=== PATIENT | female | born 1945 | race Caucasian/White ===

== ENCOUNTER 2025-03-14 22:23 | Inpatient (IN) | payer MEDICARE, OTHER, SELFPAY ==
[2025-03-14 17:18] VITALS: BP 161/101
[2025-03-14 17:40] LABS: Hematocrit 40.0 % (37.0-47.0); Hemoglobin 13.3 g/dL (12.0-16.0); Mean Corp Hgb Conc. 33.3 g/dL (33.0-37.0); Mean Corpuscular Volume 92.8 fL (81.0-99.0); Nucleated Red Blood Cells % 0 %; Platelet Count 343 10^3/uL (130-400); Red Cell Dist. Width 12.3 % (11.5-14.5)
[2025-03-14 17:48] LABS: Urine Character Clear (Clear)
[2025-03-14 17:54] LABS: ALT (SGPT) 13 U/L (0-35); AST (SGOT) 20 U/L (14-36); Albumin 4.5 g/dl (3.5-5.0); Alkaline Phosphatase 83 U/L (38-126); Blood Urea Nitrogen 23 mg/dl (7-17); Calcium 10.2 mg/dl (8.4-10.2); Carbon Dioxide 23 mmol/L (22-30); Chloride 105 mmol/L (98-107); Glucose 119 mg/dl (70-99); Lipase 124 U/L (23-300); Potassium 4.2 mmol/L (3.5-5.1); Sodium 138 mmol/L (135-145); Total Protein 7.6 g/dl (6.3-8.2); eGFR 32.40
[2025-03-14 17:58] LABS: Urine Red Blood Cell 60-70 /HPF (0-2)
[2025-03-14 19:18] VITALS: BP 183/86; BMI 27.6
[2025-03-14 20:00] VITALS: BP 183/104
--- NOTE | 2025-03-14 20:03 | ED.GENMED ---
History of Present Illness
General
Chief Complaint: Flank Pain
Source: patient and spouse
Exam Limitations: none
Time Seen by Provider: 03/14/25 19:40
Nursing documentation reviewed up to this point in time: agreed with
History of Present Illness
History of Present Illness:
79-year-old female with history as noted presents to the emergency department for evaluation of abdominal pain. Patient reports onset of symptoms about 3 days ago and have been constant and progressive since then. She reports pain across the lower
abdomen and into the flanks bilaterally. No clear triggering or relieving factors noted. She reports some associated nausea but no significant vomiting. No diarrhea or constipation. Has not noted any dysuria or hematuria or change in urinary
frequency. She has not noted a fever or chills. She says she had kidney stones 20 years ago but thinks symptoms today are dissimilar.
Review of Systems
Review of Systems
All Other Systems: ROS reviewed and negative except as documented in HPI and ROS
Constitutional: Denies fever
Respiratory: Denies trouble breathing
Cardiac: Denies chest pain
ABD/GI: Reports abdominal pain and nausea; Denies vomiting, diarrhea or constipated
: Reports flank pain; Denies dysuria or frequency
Musculoskeletal: Denies neck pain
Neurological: Denies dizzy or headache
Phy Exam
Physical Exam
Physical Exam:
General: Awake, alert, oriented x3; no acute distress
Head: Normocephalic, atraumatic
Eyes: Conjunctiva normal, sclera anicteric
Throat: Airway intact, handling secretions
Neck: Trachea midline
Lungs: Clear to auscultation bilaterally, no wheezing, rales, rhonchi
Heart: Regular rate and rhythm, no murmurs, gallops, or rubs
Abd: Soft, non distended, mildly tender diffusely somewhat worse right upper quadrant
Back: No CVA tenderness
Neuro: Grossly intact
Skin: No rash in area of concern
Extremities: Warm and well-perfused
Scores
Heart Failure Risk
Heart Failure Risk Score: Not Applicable
Heart Score for Chest Pain Patients
STEMI patient?: Not applicable
Withdrawal Assessment of Alcohol
Withdrawal Assessment Completed?: Not applicable
Course
Orders/Labs/Results
Orders:
Orders
03/14/25 17:28
Complete Blood Count/With Diff Urgent
Comprehensive Metabolic Panel Urgent
Lipase Urgent
Urinalysis Reflex To Culture Urgent
Date Specimen was Collected: 03/14/25
Time Specimen was Collected: 17:22
Urine Microscopic Reflex Cult Urgent
Urine Culture Urgent
MANISHA Source: U
Specimen Description:
Date Specimen was Collected: 03/14/25
Time Specimen was Collected: 17:22
03/14/25 19:42
CT Abd/pelvis W/wo Iv Cont Urgent
Comment: ok to change per Dr Moran
Reason For Exam: flank pain, h/o nephrolithiasis
03/14/25 20:02
Morphine Sulfate 4 mg IV NOW STA
03/14/25 20:03
0.9% Sodium Chloride 1000 ml [Nss] 1,000 ml IV BOLUS
03/14/25 21:37
CefTRIAXone [Rocephin] 1,000 mg IV NOW STA
HYDROmorphone [Dilaudid] 0.5 mg IV NOW STA
03/14/25 21:40
UROLOGY CONSULT Urgent
Consulting Provider: Rodo Gramajo
Was physician already notified: Yes
Abnormal Lab Results
03/14/25
17:28
Absolute Neuts (auto) 7.8 H 10^3/uL
(1.4-6.5)
Lymphocytes % 19.1 L %
(20.5-51.1)
BUN 23 H mg/dl
(7-17)
Creatinine 1.6 H mg/dL
(0.6-1.0)
Glucose 119 H mg/dl
(70-99)
Ur Occult Blood Reflex 4+ A
(Negative)
Urine RBC 60-70 A /HPF
(0-2)
Urine Bacteria (Reflex) Many A
(Negative)
Urine Albumin (Reflex) 2+ A
(Neg - Trace)
03/14/25 17:28
03/14/25 17:28
Vital Signs
Initial and Last Documented VS:
Initial Vital Signs
Temp Pulse Resp BP Pulse Ox
36.8 C 99 20 161/101 97
03/14/25 17:18 03/14/25 17:18 03/14/25 17:18 03/14/25 17:18 03/14/25 17:18
Last Documented Vital Signs
Temp Pulse Resp BP Pulse Ox
36.8 C 82 18 183/104 95
03/14/25 17:18 03/14/25 19:18 03/14/25 19:18 03/14/25 20:00 03/14/25 20:06
MDM/Problems Addressed
Differential Diagnosis Includes:
Nephrolithiasis, diverticulitis, UTI, colitis/enteritis
MDM/Problems Addressed:
79-year-old female presents for evaluation of lower abdominal pain rating to the flanks progressive over the past few days. Hypertensive but otherwise normal vitals. Physical exam as noted. Labs were sent off in triage including a CBC and a
CMP�CMP was significant for JOSE with creatinine of 1.6. Urinalysis is positive for blood but not clearly infected. She does have a long history of nephrolithiasis concern for symptomatic nephrolithiasis based on urinalysis and history although
bilateral nature goes somewhat against this diagnosis. Will plan to check CT abdomen pelvis. Will treat symptomatically. Provide IV fluids. Reassess after the above.
CT reviewed by me appears to show obstructive stone in the right ureter with severe hydronephrosis and likely forniceal rupture. Awaiting final report. Will provide antibiotic prophylaxis. Continue fluid resuscitation. Patient still having pain
requesting additional pain medication which we will provide. Discussed with urology for consultation. Will plan to admit for continued management. Case discussed with hospitalist.
*Radiology
Radiology exam reviewed: radiology read reviewed
*Pulse Oximetry
SaO2: 95
Oxygen Mode of Delivery: Room air
Patient hypoxic: no (95%)
*Critical Care Note
Total Time (30-74mins, 75-104mins- exclusive of procedures): Not Applicable
Data Reviewed
Review of Other/Old Records Reveals: Labs and Records
Source: patient, records and spouse
Patient Management
Discussion with other providers: Hospitalist (Discussed with hospitalist) and Auditor Internal (Discussed with urologist)
Escalation/DeEscalation of care consider admission/obs:
Admission indicated
ED Attending Note
-
Portions of this chart may have been created with voice recognition software.� Occasional wrong word or��sound alike� substitutions may have occurred due to the inherent limitations of voice recognition software.
Discharge Plan
Departure
Discharge Problem:
Nephrolithiasis, Hydronephrosis with obstructing calculus, JOSE (acute kidney injury)
Referrals:
Alicia Alvarez DO [Family Provider, Internal Medicine]
Interventions
Interventions:
*Risk Screen - Suicide Last Done: 03/14/25 19:14
*General Assessment Last Done: 03/14/25 17:18
*Neglect/Abuse Screening Last Done: 03/14/25 19:14
*ED- Fall Risk Assessment Last Done: 03/14/25 19:14
*ED COVID-19 Vaccine History Last Done: 03/14/25 19:14
*ED Influenza Vaccine History Last Done: 03/14/25 19:14
WL-Whqddt-Fklidqvrhu Assessment Last Done: 03/14/25 19:14
ED-Female Genitourinary Assessment Last Done: 03/14/25 19:14
Discharge Date and Time
Print Language: SALVADOREAN
[2025-03-14] MEDS: MORPHINE SULFATE 4 MG IV (20:08)
[2025-03-14] MEDS: NSS 1000 IV (20:14)
[2025-03-14 21:42] VITALS: BP 135/56
[2025-03-14] MEDS: ROCEPHIN 1000 MG IV (21:42)
[2025-03-14] MEDS: DILAUDID 0.5 MG IV (21:42)
--- NOTE | 2025-03-14 21:51 | W.PN.UPDATE ---
Update Note
Progress Note Update
This is an addendum to H&P written by MATEO Antoine
I saw and examined the patient.
The GEAR TOOTH GRINDING MACHINE OPERATOR's note was reviewed and I agree with the note.
Comment:
Ms. Venecia Anand is a 79 yo woman with hx essential HTN, HLD who presents to the ER with progressive flank and lower abdominal pain over the past 3 days.
Triage VS: 36.8 C, P 99, RR 20, BP 161/101, SpO2 97%
On exam patient is AAO x 3, conversant, in no distress. CV: S1, S2, RRR, abdomen soft, no LE swelling. Pain largely resolved post Dilaudid.
LABS: WBC 10.6, Hg 13.3, PLT 343, Na 138, K+ 4.2, CO2 23, BUN 23, Cr 1.6, Glucose 119, CA 10.2, liver enzymes WNL, Lipase 124
UA with 60-70 RBC, 6-[address] A/P
IMPRESSION:
8 mm mid right ureteral calculus with associated severe right hydroureteronephrosis. There is a large amount of right perinephric edema anteriorly likely reflecting components of renal calyceal/forniceal rupture; however, no micheline contrast
extravasation is present on the delayed images. No ureteral rupture.
Obstructive Nephrolithiasis with 8mm mid right ureteral calculus and severe right hydroureteronephrosis
JOSE
-case discussed between ER and Urology, Dr. Gramajo
-admit to med/surg
-IVF
-IV Ceftriaxone
-NPO after MN for OR
-pain control
-hold B[employer]NER Lisinopril
Remainder of plan per PA note
[2025-03-14 22:01] VITALS: BP 137/78
--- NOTE | 2025-03-14 22:16 | HPS.HSE ---
Family Physician
-
Family Physician: Alicia Alvarez
Chief Complaint
-
Abdominal Pain
History of Present Illness
Patient is an 79 y/0 female past medical history of hypertension, hyperlipidemia and remote kidney stone who presents with abdominal pain. Patient reports symptoms started about 3 days ago and have continued to worsen prompting her to come to the
emergency department for evaluation. She reports associated nausea without vomiting. She denies diarrhea or constipation. She denies dysuria or hematuria. She denies fevers, sweats or chills.
Medical History
Past Medical History
Past Medical History: Reports Other
Additional Past Medical History:
Essential Hypertension
Hyperlipidemia
Past Surgical History: Reports Other
Additional Past Surgical History:
Right Hip Replacement
Bilateral Lower Extremity Vein Stripping
Breast Biopsy
Cataracts
Social History
Tobacco: Non-smoker
Alcohol: None
Personal:
Living: With Family
Family History
Family History: Not pertinent
Allergies / Home Medications
Allergies reflects when Allergies were last updated in [facility].
Home Medications with original date entered in [facility]
Allergy/Medication List:
Allergies
Allergy/AdvReac Type Severity Reaction Status Date / Time
No Known Allergies Allergy Unverified 03/14/25 17:18
Home Medications
cholecalciferol (vitamin D3) 25 mcg (1,000 unit) tablet (Vitamin D3) 25 mcg PO DAILY 03/14/25
lisinopril 20 mg tablet 20 mg PO DAILY 03/14/25
nifedipine 60 mg tablet,extended release 60 mg PO DAILY 03/14/25
simvastatin 40 mg tablet 40 mg PO QPM 03/14/25
Review of Systems
-
History Source: Patient
A 12 point ROS was completed and negative except as noted: Yes
Constitutional: Denies Fever
Respiratory: Denies Cough or Trouble Breathing
Cardiac: Denies Chest Pain or Palpitations
Abdomen/GI: Reports Abdominal Pain; Denies Nausea, Vomiting, Diarrhea or Constipated
Physical Exam
Vital Signs
Vital Signs
Temp Pulse Resp BP Pulse Ox
98.2 F 82 18 137/78 93
03/14/25 17:18 03/14/25 19:18 03/14/25 19:18 03/14/25 22:01 03/14/25 22:01
Physical Exam
General: Comfortable and Conversant
HEENT: Anicteric and Moist mucous membranes
Respiratory: Clear and Non Labored Respirations
Cardiac: S1/S2 and Regular Rhythm
GI: Soft and Tender (Mild tenderness in suprapubic region)
Genito-urinary: Other (Right CVA tenderenss)
Musculoskeletal: No Clubbing and No Cyanosis
Skin: Warm and Dry
Neuro: Awake, Alert and Oriented
Psych: Calm
Laboratory Results
-
03/14/25 17:28
03/14/25 17:28
Laboratory Results
Total Bilirubin 0.7 mg/dl (0.2-1.3) 03/14/25 17:28
AST 20 U/L (14-36) 03/14/25 17:28
ALT 13 U/L (0-35) 03/14/25 17:28
Alkaline Phosphatase 83 U/L (38-126) 03/14/25 17:28
Lipase 124 U/L (23-300) 03/14/25 17:28
Abd/Pelvis CT:
8 mm mid right ureteral calculus with associated severe right hydroureteronephrosis. There is a large amount of right perinephric edema anteriorly likely reflecting components of renal calyceal/forniceal rupture; however, no micheline contrast
extravasation is present on the delayed images. No ureteral rupture.
Data Reviewed
-
CT Scan: Report Reviewed by me
Lab Data: Labs Reviewed by me
Impression/Plan
-
Acute Kidney Injury, secondary to obstructing kidney stone
-Hold Lisinopril
-Continue IVFs
-Recheck creatinine in AM
Obstructing Right Ureteral Stone
-Consult Urology
-Continue NPO for likely OR tomorrow
-Continue ceftriaxone
-Continue IVFs
Essential Hypertension
-Lisinopril on hold as above
-Continue nifedipine
Hyperlipidemia
-Continue simvastatin
DVT proph: SCDs
Code Status: Full Code
[2025-03-14 23:00] VITALS: BP 120/60
[2025-03-15] VITALS (9 sets, daily range): BP systolic 114–155; BP diastolic 48–81; BMI 27.5
[2025-03-15] MEDS: NSS 1000 IV ×2 (00:26→11:40)
--- NOTE | 2025-03-15 00:30 | PTCARENOTE ---
Pt transported from ED to 3W via stretcher. Pt independent from stretcher to bed, vitals obtained and stable. Pt started on NSS @ 100/hr, oriented to room and call patel within reach. POC ongoing.
[2025-03-15 06:07] LABS: Hematocrit 34.2 % (37.0-47.0); Hemoglobin 11.8 g/dL (12.0-16.0); Mean Corp Hgb Conc. 34.5 g/dL (33.0-37.0); Mean Corpuscular Volume 90.0 fL (81.0-99.0); Platelet Count 289 10^3/uL (130-400); Red Cell Dist. Width 12.3 % (11.5-14.5)
--- NOTE | 2025-03-15 06:22 | CONS.URO ---
Consultation
-
Date/Time Consultation Requested: 03/15
Date/Time Consultation Performed: 03/15
Requesting Provider: ED
Performing Provider: Rox
Reason for Consultation: intractable right renal colic, obstructing right ureteral stone, JOSE
Medical History
History of Present Illness
79F presents to [facility] ED w/ abdominal pain x3 days - noted for progression in severity in last few days.
Denies fevers/chills.
Denies hematuria or dysuria.
H/o ESWL ~20 yrs ago @[facility].
Past Medical History
Past Medical History: HTN and Other (kidney stones, HLD)
Past Surgical History: Orthopedic (right MICHELLE, bilateral LE vein stripping, breast biopsy, cataract) and Urological (ESWL (~20 yrs ago @[facility]))
Social History
Tobacco: Non-smoker
Alcohol: None
Drug: None
Personal:
Living: With Family
Employment: Retired
Family History
Family History: Reviewed & Not Pertinent
Allergies/Home Medications
Allergies
Allergy/AdvReac Type Severity Reaction Status Date / Time
No Known Allergies Allergy Unverified 03/14/25 17:18
Home Medications
�Medication �Instructions �Recorded �Confirmed �Type
cholecalciferol (vitamin D3) 25 25 mcg PO DAILY 03/14/25 03/14/25 History
mcg (1,000 unit) tablet (Vitamin
D3)
lisinopril 20 mg tablet 20 mg PO DAILY 03/14/25 03/14/25 History
nifedipine 60 mg tablet,extended 60 mg PO DAILY 03/14/25 03/14/25 History
release
simvastatin 40 mg tablet 40 mg PO QPM 03/14/25 03/14/25 History
Review of Systems
-
History Source: Patient
A 12 point Review of Systems was completed except as noted: Yes
Constitutional: Reports No Symptoms
EENT: Reports No Symptoms
Respiratory: Reports No Symptoms
Cardiac: Reports No Symptoms
Abdomen/GI: Reports Abdominal Pain
: Reports No Symptoms
Musculoskeletal: Reports No Symptoms
Skin: Reports No Symptoms
Neurological: Reports No Symptoms
Endocrine: Reports No Symptoms
Hematologic/Lymphatic: Reports No Symptoms
Psych: Reports No Symptoms
Physical Exam
Vital Signs
Vital Signs
Temp Pulse Resp BP Pulse Ox
97.8 F 92 16 155/81 93
03/15/25 00:09 03/15/25 00:09 03/15/25 00:09 03/15/25 00:09 03/15/25 00:09
Lab / Testing Results
Laboratory Results
03/15/25 05:10
Physical Exam
General: Well Developed, Well Nourished and Comfortable
HEENT: Normocephalic and Anicteric
Respiratory: Non Labored Respirations
Cardiac: S1/S2
Breast: Deferred by me
GI: Soft, Non Tender and Non Distended
Rectal: Deferred by Provider
Genito-urinary: No Costovertebral Tend and Clear Urine
Musculoskeletal: No Edema
Skin: Warm and Dry
Neuro: AO x 3 and No Motor Deficits
Hematologic/Lymphatic: No Lymphadenopathy
Psych: Calm and Intact Judgement
Assessment / Plan
-
High grade obstructive uropathy of right kidney - likely forniceal/calyceal rupture
Obstructing right ureteral stone
JOSE
Afebrile, VSS.
WBC WNL
Cr 1.6 (baseline 0.9)
Detailed discussion including SDM had w/ patient regarding CT and lab findings indicating obstructive uropathy.
Reviewed risks, benefits, alternatives, and potential complications of cysto + right ureteral stent insertion (and possible right ureteroscopy/laser lithotripsy/stone extraction).
Potential risks and complications include but not limited to urosepsis, bleeding, ureteral/bladder injury, risk of ureteral stricture formation, need for additional procedures/surgeries.
- Maintain NPO
- To OR as add-on case for cysto + right RGP/stent insertion (vs. right ULS if clinically feasible)
- Patient understands that if stent placement ONLY performed - will have 2nd stage outpatient procedure to address stone
- IV Ancef 2g project controls scheduler to OR (ordered)
- Surgical consent @OR desk (signed)
D/w patient.
Data Reviewed
-
Total Time Spent with Patient (in minutes): 45
CT Scan: Image personally visualized and interpreted, Report Reviewed by Me, Discussed with Physician and Discussed with Patient
Lab Data: Labs Reviewed, Discussed with Physician, Discussed with Patient and Discussed with Family
Old Records: Reviewed
[2025-03-15 06:24] LABS: Blood Urea Nitrogen 16 mg/dl (7-17); Calcium 8.7 mg/dl (8.4-10.2); Carbon Dioxide 25 mmol/L (22-30); Chloride 109 mmol/L (98-107); Estimated Creatinine Clearance 34 ml/min; Glucose 104 mg/dl (70-99); Potassium 4.2 mmol/L (3.5-5.1); Sodium 138 mmol/L (135-145); eGFR 45.76
[2025-03-15] MEDS: PROCARDIA XL (EXTENDED RELEASE) 60 MG PO (08:17)
--- NOTE | 2025-03-15 08:56 | W.SUR.PREOP ---
Pre-Operative Surgical Note
-
I have examined this patient prior to the performance of the scheduled procedure.
The patient's condition is unchanged from the time of the current History and
Physical and the patient is able to undergo the scheduled procedure.
To OR for cysto + right stent insertion
IV Ancef 2g ordered
Surgical consent signed @OR test desk trouble locator
D/w patient this AM.
--- NOTE | 2025-03-15 13:10 | W.PN.HOSP.TC ---
Today's Communication/Plan
-
Assessment / Plan
Assessment / Plan
NAD
Scleral Anicteric
MMM
No JVD
CTABL
RRR, S1/S2
Soft, NT, ND, BS+
Warm, Dry
AAOx3
Calm
Acute kidney injury secondary to obstructing kidney stone
Hold lisinopril
Continue IV fluids
Follow renal function
Avoid nephrotoxins
Avoid hypotension
Obstructing right urethral stone
Urology following
Continue n.p.o.
4 OR with stent/stone intervention
IV fluids
IV antibiotics
Hypertension
Hold ELI inhibitor due to JOSE
Continue CCB
Hyperlipidemia
Continue statin
DVT prophylaxis
SCDs
Anticipated Discharge: Within 24 hours
Subjective/Interval History
-
Date of Service: March 15, 2025
Seen and examined. No new complaints. No acute overnight events.
No pain no nausea no vomiting
Urinating well
Daughter at bedside
Objective Data
-
Labs:
Laboratory Results
03/15/25
05:10
WBC 10.0
Hgb 11.8 L
Hct 34.2 L
Plt Count 289
Sodium 138
Potassium 4.2
Chloride 109 H
Carbon Dioxide 25
BUN 16
Creatinine 1.2 H
Glucose 104 H
Calcium 8.7 D
Vital Signs:
Vital Signs
Temp Pulse Resp BP Pulse Ox
98.3 F 83 16 137/71 94
03/15/25 07:55 03/15/25 08:17 03/15/25 07:55 03/15/25 08:17 03/15/25 09:41
I&O
10/03/15/25 03/16/25
06:59 06:59 06:59
Intake Total 0 / 0
Balance 0 / 0
--- NOTE | 2025-03-15 14:59 | W.IMMPOSTOP ---
Surgical Immed Post Op Note
-
Primary Surgeon:
marissa
Assisting Surgeon:
Pre-op Diagnosis:
obstructing right ureteral stone with fornyx rupture
Post-op Diagnosis:
same
Procedure Performed:
cysto- right retrograde, stone manipulation, stent and chery placement
Anesthesia Type:
gen
Specimen / Cultures:
none
Estimated Blood Loss:
2cc
Complications:
none
Operative Findings:
stent and chery placed
observe
[2025-03-15] MEDS: STERILE WATER FOR INJECTION 10 ML IV (16:13)
[2025-03-15] MEDS: ROCEPHIN 1000 MG IV (16:13)
[2025-03-15] MEDS: LIPITOR 20 MG PO (17:19)
[2025-03-16] MEDS: NSS 1000 IV (01:52)
[2025-03-16 07:22] VITALS: BP 149/71
[2025-03-16] MEDS: PROCARDIA XL (EXTENDED RELEASE) 60 MG PO (07:58)
[2025-03-16] MEDS: TYLENOL 650 MG PO (08:13)
--- NOTE | 2025-03-16 10:19 | W.PN.URO.CBU ---
Today's Communication / Plan
-
discharge when medically stable
Assessment / Plan
-
s/p stent for obstructing right ureteral stone
remove chery
is stable medically- ok for discharge form my standpoint with outpt f/u with me
would cover for 5 days with antibx emprically
Diagnosis
-
Date of Service: March 16, 2025
-
Patient Diagnosis:
right ureteral stone
fornyx rupture
Post Op Day:
right ureteral stent 03/15
Subjective
-
pt feels fine
urine clear
no fevers
ucx no obvious growth
Objective
-
Vital Signs
Temp Pulse Resp BP Pulse Ox
97.8 F 89 16 149/71 95
03/16/25 07:22 03/16/25 07:58 03/16/25 07:22 03/16/25 07:58 03/16/25 07:22
Intake and Output
03/15/25 03/16/25 03/17/25
06:59 06:59 06:59
Intake Total 0 / 0 1580 / 1580
Output Total 1750 / 1750
Balance 0 / 0 -170 / -170
Intake:
Oral fluids 0 / 0 480 / 480
IV fluids (Total) 1100 / 1100
Normosol 100 / 100
Output:
Urine, Chery 1750 / 1750
Other:
Number of approximated MODERATE 2 3
amounts of urine
Laboratory Results
03/15/25 05:10
03/15/25 05:10
Review of Systems
-
Constitutional: No Symptoms
Respiratory: No Symptoms
Cardiac: No Symptoms
Abdomen/GI: No Symptoms
Physical Exam
-
General - no acute distress
Abdomen - soft, non-tender
[2025-03-16] MEDS: NSS IV (12:22)
--- NOTE | 2025-03-16 13:25 | W.DCSUMMARY ---
Discharge Summary
Discharge Data
Date of Admission: 03/14/25
Date of Discharge: 03/16/25
-
Pending Results: No
Hospital Course
79 y/0 female past medical history of hypertension, hyperlipidemia
Presented with pain. CT abdomen pelvis demonstrated 8 mm right ureteral calculus with associated severe right sided hydroureteronephrosis. Found to have acute kidney injury secondary to stone which peaked at 1.6. Initiated on IV fluids lisinopril
held. Sung catheter placed with good output. Was evaluated by urology recommended to continue IV fluids analgesics antiemetics n.p.o. follow OR on 03/15. S/p cystoscopy with right retrograde and stone manipulation and stent placement tolerated
procedure well. Sung catheter was removed on 03/16. Was able to urinate on her own with improving renal function to 1.2
CTAP
IMPRESSION:
8 mm mid right ureteral calculus with associated severe right hydroureteronephrosis. There is a large amount of right perinephric edema anteriorly likely reflecting components of renal calyceal/forniceal rupture; however, no micheline contrast
extravasation is present on the delayed images. No ureteral rupture.
Seen and examined on day of discharge. No new complaints. No acute overnight events.
Sung removed. Was able to urinate. PVRs checked 0.
NAD
Scleral Anicteric
MMM
No JVD
CTABL
RRR, S1/S2
Soft, NT, ND, BS+
Warm, Dry
AAOx3
Calm
More than 30 minutes spent in discharge including
Final examination of the patient
Summarizing hospital stay
Instructions for continuing care to all relevant caregivers
Preparation of discharge records, prescriptions, and referral forms
Total time spent (in minutes): 33mins
Discharge Plan
-
Patient Disposition: Home (Routine Discharge)
Discharge Diagnosis/Procedures: right sided kidney stone causing obstruction with severe hydroureteronephrosis
acute kidney injury
Condition: Good
Diet: As tolerated
Activity: As tolerated
Activity Restrictions/Additional Instructions:
Presented with pain. CT abdomen pelvis demonstrated 8 mm right ureteral calculus with associated severe right sided hydroureteronephrosis. Found to have acute kidney injury secondary to stone which peaked at 1.6. Initiated on IV fluids lisinopril
held. Sung catheter placed with good output. Was evaluated by urology recommended to continue IV fluids analgesics antiemetics n.p.o. follow OR on 03/15. S/p cystoscopy with right retrograde and stone manipulation and stent placement tolerated
procedure well. Sung catheter was removed on 03/16. Was able to urinate on her own with improving renal function to 1.2
CTAP
IMPRESSION:
8 mm mid right ureteral calculus with associated severe right hydroureteronephrosis. There is a large amount of right perinephric edema anteriorly likely reflecting components of renal calyceal/forniceal rupture; however, no micheline contrast
extravasation is present on the delayed images. No ureteral rupture.
Referrals:
Rodo Gramajo MD [Active, Urology] - in one to two weeks
Alicia Alvarez DO [Family Provider, Internal Medicine]
Prescriptions:
New
cefdinir 300 mg capsule
300 mg PO BID Qty: 10 0RF
Continued
lisinopril 20 mg tablet
20 mg PO DAILY
simvastatin 40 mg tablet
40 mg PO QPM
nifedipine 60 mg tablet extended release
60 mg PO DAILY
cholecalciferol (vitamin D3) [Vitamin D3] 25 mcg (1,000 unit) Tablet
25 mcg PO DAILY
Discharge Orders:
Discharge Patient (As Directed); Ordered 03/16/25
Ordered By: Junior Garcia
Discharge Date and Time
Print Language: NAURUAN
--- NOTE | 2025-03-16 14:22 | CM ---
Pt admitted with abdominal pain; found to have an obstructing kidney stone; underwent cystoscopy with stent.
Pt lives with her , Schuyler, in a 2 story home with 2 entry steps. Venecia is (I) amb and adls.
Plan: Discharge to home today. Pt's will transport.
Discharge plan: Home with no needs.
== END 2025-03-16 14:09 | disposition home or self-care (01) | DRG 661 ==
LOC: 3 WEST ACU 22:23
PROVIDERS: Physician Assistant Medical; Specialist; Student in an Organized Health Care Education/Training Program; ADMITTING PHYSICIAN Student in an Organized Health Care Education/Training Program; ATTENDING PHYSICIAN Hospitalist; CONSULT PHYSICIAN Surgery; EMERGENCY PHYSICIAN Emergency Medicine; FAMILY PHYSICIAN Internal Medicine
PROC: 0T768DZ Dilation of Right Ureter with Intraluminal Device, Via Natural or Artificial Opening Endoscopic (ICD-10-PCS; 2025-03-15)
PROC: BT1D1ZZ Fluoroscopy of Right Kidney, Ureter and Bladder using Low Osmolar Contrast (ICD-10-PCS; 2025-03-15)
DX: N13.2 Hydronephrosis with renal and ureteral calculous obstruction (principal); N17.9 Acute kidney failure, unspecified; I10 Essential (primary) hypertension; H26.9 Unspecified cataract; E78.5 Hyperlipidemia, unspecified; Z96.641 Presence of right artificial hip joint; Z79.899 Other long term (current) drug therapy; Z87.442 Personal history of urinary calculi
CPT/HCPCS: 74178; 74420; 76000; 80048; 80053; 81003; 81015; 83690; 85025; 85027; 87086; 93005; 96361; 96374; 96375; 99285; A4300; C1758; C2617; Q9967

== ENCOUNTER 2025-03-22 06:09 | Day surgery (SDC) | payer MEDICARE, OTHER, SELFPAY ==
[2025-03-22] VITALS (9 sets, daily range): BP systolic 110–135; BP diastolic 54–75; BMI 26.7
[2025-03-22] MEDS: NORMOSOL-R/PLASMALYTE-A 1000 IV (10:19)
[2025-03-22] MEDS: EMEND 40 MG PO (10:19)
[2025-03-22] MEDS: DILAUDID 0.25 MG IV (13:06)
[2025-03-22] MEDS: DETROL LA 4 MG PO (13:18)
== END 2025-03-22 14:15 | disposition home or self-care (01) ==
LOC: SDS 06:09
PROVIDERS: ATTENDING PHYSICIAN Specialist
DX: N20.2 Calculus of kidney with calculus of ureter (principal)
CPT/HCPCS: 52356; 74018; 76000; 82365; C1894; C2617; J1580

== ENCOUNTER → 2025-05-25 10:08 | Outpatient (REF) | payer MEDICARE, OTHER, SELFPAY | LOC: RAD 10:08 | PROVIDERS: ATTENDING PHYSICIAN Specialist; FAMILY PHYSICIAN Internal Medicine | DX: N20.0 Calculus of kidney (principal) | CPT/HCPCS: 74018 ==